=== PATIENT | male | born 1995 | race Caucasian/White ===

== ENCOUNTER 2017-02-23 18:28 | Emergency (ER) | payer OTHER ==
[~2017-02-23] VITALS: Ht 182.9 cm; Wt 70.4 kg
[~2017-02-23 18:28] MED LIST: ADVIL,NUPRIN,M200 MG PO; ATIVAN0.5 MG PO; FLEXERIL10 MG PO; FLUOXETINE HCL10 M1 PO; FLUOXETINE HCL20 MG PO; HYDROXYZINE PAM25 MG PO; LORTAB 5-325 M1 EACH PO; NAPROSYN500 MG PO; QUETIAPINE FUM100 MG PO; QUETIAPINE FUM300 MG PO; SEROQUEL XR300 MG PO; ZOLPIDEM TARTRAT5 MG PO
[2017-02-23] MEDS ORDERED: ZOFRAN ODT4 MG PO (20:11)
[2017-02-23] MEDS ORDERED: CLEOCIN300 MG PO (20:11)
[2017-02-23] MEDS ORDERED: PERCOCET 5/31 TABLET PO (20:11)
[2017-02-23 20:59] VITALS: BP 113/67
[2017-02-26] MEDS ORDERED: LATUDA40 MG PO (13:14)
[2017-02-26] MEDS ORDERED: ADDERALL20 MG PO (13:16)
[2017-02-26] MEDS ORDERED: PERCOCET 5/31 TABLET PO (13:16)
[2017-02-26] MEDS ORDERED: SEROQUEL100 MG PO (13:16)
[2017-02-26] MEDS ORDERED: CLINDAMYCIN HC150 MG PO (13:17)
[2017-02-26] MEDS ORDERED: LAMICTAL25 MG PO (13:17)
[2017-02-26] MEDS ORDERED: ZOFRAN4 MG PO (13:19)
== END 2017-02-23 21:21 | disposition home or self-care (01) ==
LOC: EME 18:28
PROC: 0H98XZZ Drainage of Buttock Skin, External Approach (ICD-10-PCS; principal; 2017-02-23)
DX: L05.01 Pilonidal cyst with abscess (principal); F32.9 Major depressive disorder, single episode, unspecified; J45.909 Unspecified asthma, uncomplicated; F41.9 Anxiety disorder, unspecified; F84.5 Asperger's syndrome
CPT/HCPCS: 87070; 87075; 87076; 87077; 87185; 87205; 99281; 99284

== ENCOUNTER 2017-02-27 13:05 | Day surgery (SDC) | payer OTHER ==
[~2017-02-27] VITALS: Ht 182.9 cm; Wt 81.6 kg
[~2017-02-27 13:05] MED LIST changes: +ADDERALL20 MG PO; +CLEOCIN300 MG PO; +CLINDAMYCIN HC150 MG PO; +LAMICTAL25 MG PO; +LATUDA40 MG PO; +PERCOCET 5/31 TABLET PO; +SEROQUEL100 MG PO; +ZOFRAN ODT4 MG PO; +ZOFRAN4 MG PO
[2017-02-27 13:43] VITALS: BP 133/67
[2017-02-27] MEDS ORDERED: NORCO 5/3251 TABLET PO (15:34)
[2017-02-27 16:09] VITALS: BP 135/68
[2017-02-27 16:37] VITALS: BP 122/56
[2017-02-27 17:30] VITALS: BP 149/92
== END 2017-02-27 16:53 | disposition home or self-care (01) ==
LOC: SDC 13:05
PROC: 0JB90ZZ Excision of Buttock Subcutaneous Tissue and Fascia, Open Approach (ICD-10-PCS; principal; 2017-02-27)
DX: L05.91 Pilonidal cyst without abscess (principal); F41.9 Anxiety disorder, unspecified; J45.909 Unspecified asthma, uncomplicated; F84.5 Asperger's syndrome; F90.0 Attention-deficit hyperactivity disorder, predominantly inattentive type; F17.210 Nicotine dependence, cigarettes, uncomplicated; Z82.49 Family history of ischemic heart disease and other diseases of the circulatory system
CPT/HCPCS: 88305; 93005; J0330; J0690; J1100; J1170; J2250; J2405; J2710; J3010; S0020